=== PATIENT | female | born 1990 | race Caucasian/White ===

== ENCOUNTER → 2016-11-09 | Outpatient (CLI) | payer BC ==
--- NOTE | 2016-11-09 13:23 | Diagnostic Imaging Report ---
PROCEDURE: US Carotid Duplex Bilateral. TECHNIQUE: Multiple real-time grayscale images were obtained over the carotid arteries in various projections bilaterally. Additional duplex Doppler and color Doppler images were also obtained. INDICATION: Dizziness. Left arm numbness. FINDINGS: There is no significant plaque seen on grayscale images. The color Doppler evaluation demonstrates patent common, internal and external carotid arteries bilaterally. The vertebral arteries demonstrate antegrade flow on both sides. Peak systolic velocities are 98, 82, and 91 cm/s from proximal to distal and on the left are 112, 140, and 111 cm/s from proximal to distal. The ICA/CCA ratios on the right side are up to 0.9 and on the left are up to 1. IMPRESSION: No significant abnormality. Estimated underlying stenosis is in the range of 0-25% bilaterally. Dictated by: Dictated on workstation # [id number]
--- NOTE | 2016-11-09 13:41 | Diagnostic Imaging Report ---
PROCEDURE: US Thyroid. TECHNIQUE: Multiple real-time grayscale images were obtained of the thyroid in various projections. INDICATION: History of right lobectomy. FINDINGS: The right lobe is surgically absent. There is no mass or fluid collection within the operative bed. The left lobe measures 4.8 x 1.6 x 2.3 cm and is homogenous in its echotexture showing unremarkable color Doppler flow with no solid or cystic mass. IMPRESSION: Nonfocal normal appearing left lobe with absent right lobe. No mass or fluid collection. Dictated by: Dictated on workstation # [id number]
== END ==
LOC: RAD 10:08
PROVIDERS: ATTEND Nurse Practitioner Family
DX: E04.1 Nontoxic single thyroid nodule (principal); Z90.89 Acquired absence of other organs; R42 Dizziness and giddiness
CPT/HCPCS: 36415; 76536; 82951; 82952; 82962; 93880